=== PATIENT | male | born 1980 ===

== ENCOUNTER 2020-05-22 15:42 | Emergency (ER) | payer MEDICAID ==
[~2020-05-22] VITALS: Ht 188 cm; Wt 81.6 kg
--- NOTE | 2020-05-22 15:53 | NUR ---
ED Nurse Note: pt KRISHNA from the street, paramedics state that pt was running around in the street and when his sister was called to pick him up, he refused to leave with her. pt reports that he is "stressed out" denies any CP or SOB at this time. pt appears mildly disheveled, multiple RNs and staff had to remind pt to keep his mask on and stay in his seat to wait for provider, pt requires often reminders, asks for the same things several times but is able to follow commands
[2020-05-22 15:55] VITALS: BP 140/80
--- NOTE | 2020-05-22 16:05 | NUR ---
ED Nurse Note: pt repeatedly asking for meds but does not know what he usually takes, mentions zyprexa but does not know dose and is asking for anxiety meds
--- NOTE | 2020-05-22 16:27 | Emergency Room Report ---
History of Present Illness General Chief Complaint: General Complaint Source: Patient Present Illness HPI 40 YO male with PMH of schizophrenia brought in by S today for feelings of stressed out. Patient states he is schizophrenic and he is not taken his medications recently. He currently denies any SI, HI, or hallucinations. Patient states he is on Zyprexa and has not needed medication refill. Location, total body. Severity, mild. Timing, onset prior to arrival. Patient denies any modifying factors or other associated signs or symptoms. PMH: Schizophrenia PSH: [Denies] Smoking: Yes to cigarettes Ethanol: [Denies] Drug: Yes to marijuana and to methamphetamine use. Allergies: Coded Allergies: No Known Allergies (Unverified , 05/22/20) COVID-19 Screening Contact w/high risk pt: No Experienced COVID-19 symptoms?: No COVID-19 Testing performed HERB DIGGER: No Nursing Documentation-PMH History Of Psychiatric Problem: Yes - schizophrenia Review of Systems Narrative Review of systems: CONST: No fevers or chills, No night sweats EYES: No eye pain, vision change, eye discharge HEAD/EARS/NOSE/THROAT: No earache, sore throat, or nasal discharge. PULMONARY: No SOB, no cough, no wheezing CARDIAC: No chest pain, No palpitations, no leg swelling GI: No abdominal pain, no vomiting, no diarrhea , no melena or BRBPR : No flank pain, no dysuria, no hematuria, no frequency. MUSCULOSKELETAL: No back pain, no neck pain, no leg pain SKIN: No rash, no itching, no bruising NEUROLOGICAL: No headache, no dizziness, no paresthesia , no focal weakness. PSYCH: Denies SI, HI, or hallucinations. 4 point Review of Systems is otherwise negative except per HPI Physical Exam Vital Signs Date Time Temp Pulse Resp B/P (MAP) Pulse Ox O2 Delivery O2 Flow Rate FiO2 05/22/20 15:40 97.5 106 18 140/80 (100) 98 Room Air Other Organ Systems Physical Exam: GENERAL: Awake, alert, nontoxic, in no acute distress EYES: EOMI, conjunctiva without pallor HEAD/EARS/NOSE/THROAT: NCAT, oral mucosa moist, external nose and ear normal in appearance, oropharynx clear, no swelling or exudates. NECK: supple, nontender, no spasm, no JVD, no cervical adenopathy RESPIRATORY: no stridor, effort normal, no retractions, no accessory muscle use, BS clear bilaterally, no wheezes, no rhonchi, no rales, no rub. CARDIOVASCULAR: RRR, normal S1 S2, no murmur, no peripheral edema ABDOMINAL /GI: soft, nondistended, nontender, BS normal, no masses, no guarding, no Mcburneys point tenderness, no rebound, no Murpheys sign : No CVA tenderness MUSCULOSKELETAL: All extremities are non-tender, no swelling, FROM, normal strength, normal sensation, cap refill <2 seconds in all extremities EXTREMITIES: no leg swelling, pulses: 2+ brisk and normal in all distal extremities SKIN: No rash, skin is warm and dry. No cyanosis, no pallor NEUROLOGICAL: awake, alert and appropriate, oriented x3, speech normal, motor and sensation grossly intact PSYCHIATRIC: Normal mood, normal affect Medical Decision Making PA Attestation Dr. Valerio Is my supervising Physician whom patient management has been discussed with. Diagnostic Impression: Primary Impression: Encounter for generalized patient complaints Additional Impression: Methamphetamine use ER Course Pt. presents to the ED c/o stressed out feelings. Ddx considered but are not limited to anxiety, methamphetamine use, failure to a dhere to medication. Vital signs: are WNL, pt. is afebrile H&PE are most consistent with failure to here to medication, schizophrenia, methamphetamine use. ORDERS: none required at this time, the diagnosis is clinical ED INTERVENTIONS AND MDM : Patient presents today with " feelings of stress." He states he is currently on Zyprexa for his schizophrenia however he has not taken it in the past couple of days. He wants to be evaluated. Psychiatric laboratories were ordered and were essentially unremarkable. Urine drug screen reveals positive for amphetamine use and patient states that he does use meth. He also reports to smoking marijuana which is what his drug screen is positive for as well. Serum alcohol level today is 253. Patient does not appear to be severely intoxicated, he is walking around with normal gait, he is in no acute distress, he is speaking to me in full complete sentences. The patient denies any suicide attempt, overdose, or ingestion. They exhibit no signs of any severe toxic syndrome or drug / alcohol withdrawal. The patient was observed for a period of time in the ED with serial exams. They have no focal neurologic deficits. Patient states he would like to go home and his sister here is to pick him up. Vital signs are stable patient stable for outpatient care discharge home. Laboratory Tests Test 05/22/20 16:42 White Blood Count 8.3 K/UL (4.8-10.8) Red Blood Count 5.17 M/UL (4.70-6.10) Hemoglobin 14.5 G/DL (14.2-18.0) Hematocrit 40.6 % (42.0-52.0) L Mean Corpuscular Volume 79 FL (80-99) L Mean Corpuscular Hemoglobin 28.0 PG (27.0-31.0) Mean Corpuscular Hemoglobin Concent 35.6 G/DL (32.0-36.0) Red Cell Distribution Width 13.5 % (11.6-14.8) Platelet Count 245 K/UL (150-450) Mean Platelet Volume 7.6 FL (6.5-10.1) Neutrophils (%) (Auto) 64.1 % (45.0-75.0) Lymphocytes (%) (Auto) 27.5 % (20.0-45.0) Monocytes (%) (Auto) 7.1 % (1.0-10.0) Eosinophils (%) (Auto) 0.2 % (0.0-3.0) Basophils (%) (Auto) 1.0 % (0.0-2.0) Sodium Level 138 MMOL/L (136-145) Potassium Level 4.1 MMOL/L (3.5-5.1) Chloride Level 102 MMOL/L (98-107) Carbon Dioxide Level 30 MMOL/L (21-32) Anion Gap 6 mmol/L (5-15) Blood Urea Nitrogen 12 mg/dL (7-18) Creatinine 1.1 MG/DL (0.55-1.30) Estimated Glomerular Filtration Rate > 60 mL/min (>60) Glucose Level 97 MG/DL (74-106) Calcium Level 8.4 MG/DL (8.5-10.1) L Total Bilirubin 0.4 MG/DL (0.2-1.0) Aspartate Amino Transferase (AST) 25 U/L (15-37) Alanine Aminotransferase (ALT) 16 U/L (12-78) Alkaline Phosphatase 83 U/L (46-116) Total Protein 7.4 G/DL (6.4-8.2) Albumin 3.8 G/DL (3.4-5.0) Globulin 3.6 g/dL Albumin/Globulin Ratio 1.1 (1.0-2.7) Salicylates Level 2.9 ug/mL (2.8-20) Urine Opiates Screen Negative (NEGATIVE) Acetaminophen Level < 2 MCG/ML (10-30) L Urine Barbiturates Screen Negative (NEGATIVE) Phencyclidine (PCP) Screen Negative (NEGATIVE) Urine Amphetamines Screen Positive (NEGATIVE) H Urine Benzodiazepines Screen Negative (NEGATIVE) Urine Cocaine Screen Negative (NEGATIVE) Urine Marijuana (THC) Screen Positive (NEGATIVE) H Serum Alcohol 253 mg/dL Last Vital Signs Date Time Temp Pulse Resp B/P (MAP) Pulse Ox O2 Delivery O2 Flow Rate FiO2 05/22/20 15:55 106 18 Room Air 05/22/20 15:55 97.5 140/80 98 Status: improved Disposition: HOME, SELF-CARE Condition: Stable Referrals: Jan[facility] + [facility] Patient Instructions: Schizophrenia Additional Instructions: Follow up with a Primary Care Provider in 1-2 days, even if your symptoms have resolved. Return sooner to ED if new symptoms occur, or current symptoms become worse. - Please note that this Emergency Department Report was dictated using [employer] technology software, occasionally this can lead to erroneous entry secondary to interpretation by the dictation equipment. Alyce Bill PA-C May 22, 2020 16:27
[2020-05-22 17:13] LABS: EOSINOPHILS % (AUTO) 0.2 % (0.0-3.0); HEMATOCRIT 40.6 % (42.0-52.0); HEMOGLOBIN 14.5 G/DL (14.2-18.0); LYMPHOCYTES % (AUTO) 27.5 % (20.0-45.0); MEAN CORPUSCULAR VOLUME 79 FL (80-99); MONOCYTES % (AUTO) 7.1 % (1.0-10.0); NEUTROPHILS % (AUTO) 64.1 % (45.0-75.0); PLATELET COUNT 245 K/UL (150-450); RED BLOOD COUNT 5.17 M/UL (4.70-6.10); RED CELL DISTRIBUTION WIDTH 13.5 % (11.6-14.8); WHITE BLOOD COUNT 8.3 K/UL (4.8-10.8)
[2020-05-22 17:46] LABS: ANION GAP 6 mmol/L (5-15); BLOOD UREA NITROGEN 12 mg/dL (7-18); CALCIUM 8.4 MG/DL (8.5-10.1); CARBON DIOXIDE 30 MMOL/L (21-32); CHLORIDE 102 MMOL/L (98-107); CREATININE 1.1 MG/DL (0.55-1.30); POTASSIUM 4.1 MMOL/L (3.5-5.1); SODIUM 138 MMOL/L (136-145)
[2020-05-22 17:50] LABS: ALANINE AMINOTRANSFERASE 16 U/L (12-78); ALBUMIN 3.8 G/DL (3.4-5.0); ALBUMIN/GLOBULIN RATIO 1.1 (1.0-2.7); ALKALINE PHOSPHATASE 83 U/L (46-116); ASPARTATE AMINO TRANSFERASE 25 U/L (15-37); BILIRUBIN,TOTAL 0.4 MG/DL (0.2-1.0)
--- NOTE | 2020-05-22 18:00 | NUR ---
ED Nurse Note: pt's sister Peggy [phone]
[2020-05-22 18:45] VITALS: BP 133/78
[2020-05-22 19:00] VITALS: BP 140/80
--- NOTE | 2020-05-22 19:00 | NUR ---
ER DISCHARGE NOTE: Patient is cleared to be discharged per ERMD, pt is aox4, on room air, with stable vital signs. pt was given dc and prescription instructions, pt was able to verbalize understanding, pt id band and iv site removed without complications. pt is able to ambulate with steady gait. pt took all belongings and left with sister
== END 2020-05-22 19:00 | disposition home or self-care (01) ==
LOC: EDBD 15:42 → EMR 17:43
DX: F43.9 Reaction to severe stress, unspecified (principal); F15.90 Other stimulant use, unspecified, uncomplicated; F20.9 Schizophrenia, unspecified; F17.210 Nicotine dependence, cigarettes, uncomplicated
CPT/HCPCS: 36415; 80053; 80307; 85025; G0480; G0481; Z7502; 99284